=== PATIENT | female | born 1960 | race Caucasian/White ===

== ENCOUNTER 2019-08-23 05:47 | Emergency (ER) | payer OTHER ==
[~2019-08-23] VITALS: Ht 170.2 cm; Wt 61.2 kg
[2019-08-23] MEDS ORDERED: NORCO 5-325 TA1 EAC1 PO (06:49)
[2019-08-23] MEDS ORDERED: IBUPROFEN 800800 MG PO (06:49)
[2019-08-23 07:03] VITALS: BP 128/76
== END 2019-08-23 07:04 | disposition home or self-care (01) ==
LOC: M.ERS 05:47
DX: S52.122A Displaced fracture of head of left radius, initial encounter for closed fracture (principal); J45.909 Unspecified asthma, uncomplicated; Z98.890 Other specified postprocedural states; Z88.0 Allergy status to penicillin; Z86.2 Personal history of diseases of the blood and blood-forming organs and certain disorders involving the immune mechanism; W18.39XA Other fall on same level, initial encounter; Y93.89 Activity, other specified; Y92.89 Other specified places as the place of occurrence of the external cause; Y99.0 Civilian activity done for income or pay